=== PATIENT | male | born 1995 | race Two or more races ===

== ENCOUNTER 2018-11-07 10:32 | Emergency (ER) | payer OTHER ==
[2018-11-07] MEDS ORDERED: LIDOCAINE 1% INJ-PF (10 MG/ML) 30 ML SDV INJ ONE (10:48)
[2018-11-07] MEDS ORDERED: DIPH/PERTUSS(ACELL)/TETANUS VAC/PF 0.5 ML SYR (>=10YO) IM ONE (10:48)
--- NOTE | 2018-11-07 10:50 | ER Document Report ---
ED Medical Screen (RME) - General Chief Complaint: Laceration Stated Complaint: ARM LACERATION Time Seen by Provider: 11/07/18 10:45 TRAVEL OUTSIDE OF THE [place] IN LAST 30 DAYS: No - HPI Notes: 11/07/18 10:48 Patient is a 22-year-old male who presents complaining laceration to his left anteromedial mid forearm by a clean razor blade prior to arrival. Patient states that he was trying to cut carpet when he caught his arm. He still able to move his wrist and hand otherwise without any difficulties. Reading is been controlled by gauze. Unknown last tetanus. Denies GUY, fever, neck pain, URI, CP, SOB, Abd pain, dysuria, back pain, or rash. I have treated and performed a rapid initial assessment of this patient. A comprehensive ED assessment and evaluation of the patient, analysis of test results and completion of medical decision making process will be conducted by additional ED providers. PHYSICAL EXAMINATION: GENERAL: Well-appearing, well-nourished and in no acute distress. A&Ox4. An swers questions appropriately. Left forearm: there is a superficial [id number] laceration noted. bleeding controlled. FROM otherwise to UE and strength 5+/5. N/V intact distal. cap refill <3 seconds. - Related Data Allergies/Adverse Reactions: No Known Allergies Allergy (Verified 11/07/18 10:40) Physical Exam - Vital signs Vitals: Temp Pulse Resp BP Pulse Ox 97.7 F 83 18 142/75 H 97 11/07/18 10:36 11/07/18 10:36 11/07/18 10:36 11/07/18 10:36 11/07/18 10:36 Course - Vital Signs Vital signs: Temp Pulse Resp BP Pulse Ox 97.7 F 83 18 142/75 H 97 11/07/18 10:36 11/07/18 10:36 11/07/18 10:36 11/07/18 10:36 11/07/18 10:36
[2018-11-07 12:19] VITALS: BP 118/72
--- NOTE | 2018-11-07 12:49 | ER Document Report ---
ED General - General Chief Complaint: Laceration Stated Complaint: ARM LACERATION Time Seen by Provider: 11/07/18 10:45 Primary Care Provider: [facility] [Provider Group] - Follow up in 1 week TRAVEL OUTSIDE OF THE [place] IN LAST 30 DAYS: No - HPI Notes: Patient is a 22-year-old male that presents to the emergency department for chief complaint of left forearm laceration. 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 This was accidental. He states that occurred about 1 hour prior to coming to the emergency room. He reports some burning around the laceration but denies severe pain. He denies any numbness or weakness in his hand. He is not sure when his last tetanus vaccine was. Past Medical History: Negative Past Surgical History: Negative Social History: Daily tobacco, daily alcohol, denies drug use Family History: Reviewed and noncontributory for presenting illness Allergies: Reviewed, see documented allergy list. REVIEW OF SYSTEMS: CONSTITUTIONAL : No fever No chills No diaphoresis No recent illness EENT: No vision changes No congestion No sore throat CARDIOVASCULAR: No chest pain No palpitations RESPIRATORY: No shortness of breath No cough No difficulty breathing GASTROINTESTINAL: No abdominal pain No nausea No vomiting No diarrhea GENITOURINARY: No dysuria No hematuria No difficulty urinating MUSCULOSKELETAL: No back pain No leg pain No arm pain SKIN: No rashes Laceration LYMPHATIC: No swollen, enlarged glands. NEUROLOGICAL: No lightheadedness No headache No weakness No paresthesias PSYCHIATRIC: No anxiety No depression PHYSICAL EXAMINATION: Vital signs reviewed, nursing noted reviewed. GENERAL: Well-appearing, well-nourished and in no acute distress. HEAD: Atraumatic, normocephalic. EYES: Eyes appear normal, extraocular movements intact, sclera anicteric, conjunctiva are normal. ENT: nares patent, oropharynx clear without exudates. Moist mucous membranes. NECK: Normal range of motion, supple without lymphadenopathy LUNGS: Breath sounds clear to auscultation bilaterally and equal. No wheezes rales or rhonchi. HEART: Regular rate and rhythm without murmurs ABDOMEN: Soft, nontender, normoactive bowel sounds. No rebound, guarding, or rigidity. No masses appreciated. EXTREMITIES: Normal strength and range of motion in left hand and wrist, nontender, good range of motion, no pitting or edema. NEUROLOGICAL: No focal neurological deficits. Moves all extremities spontaneously Motor and sensory grossly intact on exam. PSYCH: Normal mood, normal affect. SKIN: Warm, Dry, normal turgor, 3.0 cm linear full-thickness laceration to anterior left forearm just distal to antecubital fossa with minimal bleeding and 1.0 cm wound gapping, no foreign material noted. - Related Data Allergies/Adverse Reactions: No Known Allergies Allergy (Verified 11/07/18 10:40) Past Medical History - Social History Smoking Status: Current Every Day Smoker Frequency of alcohol use: None Drug Abuse: None Family History: Reviewed & Not Pertinent Patient has suicidal ideation: No Patient has homicidal ideation: No Renal/ Medical History: Denies: Hx Peritoneal Dialysis Physical Exam - Vital signs Vitals: Temp Pulse Resp BP Pulse Ox 97.7 F 83 18 142/75 H 97 11/07/18 10:36 11/07/18 10:36 11/07/18 10:36 11/07/18 10:36 11/07/18 10:36 Course - Re-evaluation Re-evalutation: 11/07/18 12:56 Vitals reviewed. Nursing notes reviewed. Patient's tetanus vaccine was updated. Patient has full-thickness laceration to his anterior left forearm just distal to his antecubital fossa. He has no tendinous involvement. The injury was accidental and does not appear intentional. His laceration was repaired with suture. He was counseled on wound care and follow-up. He is stable at discharge. - Vital Signs Vital signs: Temp Pulse Resp BP Pulse Ox 97.6 F 60 14 118/72 97 11/07/18 12:17 11/07/18 12:17 11/07/18 12:17 11/07/18 12:17 11/07/18 12:17 Procedures - Laceration/Wound Repair Left forearm Time completed: 12:58 Wound length (cm): 3.0 Wound's Depth, Shape: Linear, Other - Full-thickness, exposed adipose Laceration pre-procedure: Sterile PPE donned, Sterile drapes applied, Shur-Clens applied Anesthetic type: 1% Lidocaine w/epi Volume Anesthetic (mLs): 3 Wound explored: Clean, No foreign body removed Irrigated w/ Saline (mLs): 250 Wound Repaired With: Sutures - 1 horizontal mattress, 3 simple interrupted Number of Sutures: 4 Layer Closure?: No Post-procedure NV exam normal: Yes Complications: No Notes: 11/07/18 12:58 Patient's wound was probed and explored through a bloodless field. There is no tenderness or muscular involvement. Nonstick dressing placed after suture repair Discharge - Discharge Clinical Impression: Laceration of left forearm Qualifiers: Encounter type: initial encounter Qualified Code(s): S51.812A - Laceration without foreign body of left forearm, initial encounter Condition: Stable Disposition: HOME, SELF-CARE Instructions: Laceration Care ([facility]), Tetanus Immunization Given ([facility]) Additional Instructions: Please return to the emergency department if you have any worsening, or concern of your symptoms. Please return to the emergency department if you develop chest pain, difficulty breathing, severe abdominal pain, or ongoing vomiting. Please follow-up with your primary care physician in 2-3 days and any other recommended physicians. If prescribed, take all medications as directed. If you have any questions or concerns do not hesitate to return the emergency department for evaluation. Have your stitches removed in 7 to 10 days Referrals: [facility] [Provider Group] - Follow up in 1 week
== END 2018-11-07 12:19 | disposition home or self-care (01) ==
LOC: ER 10:32
DX: S51.812A Laceration without foreign body of left forearm, initial encounter (principal); W27.8XXA Contact with other nonpowered hand tool, initial encounter; Y99.0 Civilian activity done for income or pay; F17.200 Nicotine dependence, unspecified, uncomplicated; Z23 Encounter for immunization
CPT/HCPCS: 99282; 90471; 90715; 12002; J3490